=== PATIENT | male | born 1945 | race Caucasian/White ===

== ENCOUNTER 2018-10-22 10:30 | Inpatient (IN) | payer OTHER ==
[~2018-10-22] VITALS: Ht 170.2 cm; Wt 79.8 kg
[2018-10-22] MEDS ORDERED: INDAPAMIDE1.25 MG PO (11:16)
[2018-10-22] MEDS ORDERED: FOLIC ACID PO (11:17)
[2018-10-22] MEDS ORDERED: VOLTAREN-XR100 MG PO (11:17)
[2018-10-22] MEDS ORDERED: METFORM PO (11:18)
[2018-10-22] MEDS ORDERED: GLIPIZIDE PO (11:18)
[2018-10-31] MEDS ORDERED: ELIQUIS2.5 MG PO (17:09)
[2018-10-31] MEDS ORDERED: PERCOCET 5-3251 EACH PO (17:09)
[2018-10-31] MEDS ORDERED: CEFADROXIL500 MG PO (17:09)
== END 2018-10-31 18:46 | DRG 470 ==
LOC: O/R 10-29 06:00 → SURG 10-29 06:00 → SURH 10-29 07:00 → EDBD 10-29 10:30 → SURH 10-29 10:30 → SURG 10-29 11:09
PROVIDERS: ADMIT Orthopaedic Surgery
PROC: 0MNP0ZZ Release Left Knee Bursa and Ligament, Open Approach (ICD-10-PCS; 2018-10-29)
PROC: 0SRD0J9 Replacement of Left Knee Joint with Synthetic Substitute, Cemented, Open Approach (ICD-10-PCS; principal; 2018-10-29 07:00)
DX: M17.12 Unilateral primary osteoarthritis, left knee (principal); D62 Acute posthemorrhagic anemia; E11.9 Type 2 diabetes mellitus without complications; I49.8 Other specified cardiac arrhythmias; M81.0 Age-related osteoporosis without current pathological fracture